=== PATIENT | female | born 1975 | race Caucasian/White ===

== ENCOUNTER 2019-04-16 00:09 | Emergency (ER) | payer MEDICAID, OTHER ==
[~2019-04-16] VITALS: Ht 165.1 cm; Wt 62.5 kg
--- NOTE | 2019-04-16 00:28 | ED Trauma-Multisystem ---
General Chief Complaint: Trauma-Non Activation Stated Complaint: FALL Source of Information: Patient Exam Limitations: No Limitations History of Present Illness Date Seen by Provider: Apr 16, 2019 Time Seen by Provider: 00:23 Initial Comments States she fell backward off a ladder at home tonight injuring her neck and low back. Denies hitting her head or any LOC. C/o pain in her neck with shooting pain from her neck into her low back. Denies weakness or numbness. Hx of neck surgery and scoliosis w chronic back pain. Occurred: Just Prior to Arrival Allergies and Home Medications Allergies Coded Allergies: baclofen (Verified Allergy, Unknown, 04/16/19) fluoxetine (Verified Allergy, Unknown, 04/16/19) Home Medications Cyclobenzaprine HCl 10 Mg Tablet, 10 MG PO Q8H PRN for SPASMS Prescribed by: WYATT JACOBS on 04/16/1930 Ibuprofen 800 Mg Tablet, 800 MG PO Q8H PRN for PAIN Prescribed by: WYATT DOWNSSTTAD on 04/16/1930 Patient Home Medication List Home Medication List Reviewed: Yes Review of Systems Review of Systems Constitutional: no symptoms reported; No dizziness, No fever, No malaise, No w eakness Respiratory: No cough, No short of breath Cardiovascular: Denies Chest Pain, Denies Edema, Denies Palpitations, Denies Syncope Gastrointestinal: No abdominal pain, No nausea, No vomiting Musculoskeletal: see HPI, back pain; No joint pain, No muscle stiffness, No muscle cramps, No muscle weakness; neck pain Skin: No change in color, No lesions, No lumps, No pruritus, No rash Psychiatric/Neurological: Denies Headache, Denies Numbness, Denies Unable to Move Lower Ext, Denies Unable to Move Upper Ext Past Yrwufzb-Glwxbc-Cizyso Hx Past Med/Social Hx: Reviewed Nursing Past Med/Soc Hx Patient Social History Recent Foreign Travel: No Contact w/Someone Who Travel: No Past Medical History Orthopedic (cervical spine) Physical Exam Vital Signs Vital Signs - First Documented 04/16/19 04/16/19 00:17 01:45 Temp 36.4 Pulse 90 Resp 20 B/P (MAP) 100/76 (84) Pulse Ox 100 O2 Delivery Room Air Height, Weight, BMI Height: '" Weight: lbs. oz. kg; BMI Method: General Appearance: No Apparent Distress, WD/WN Head: No Evidence of Injury; No Yo's Sign, No Contusions, No Lacerations, No Raccoon Eyes, No Swelling, No Tenderness Neck: Supple, Limited Range of Motion (2 to pain), Tender Lateral, Tender Midline (non-focal) Back: Normal Inspection, No CVA Tenderness, Decreased Range of Motion, Vertebral Tenderness (all of L-spine, none of T-spine and all of C-spine) Extremity: Normal Capillary Refill, Normal Inspection, Normal Range of Motion, Non Tender Neurologic/Psychiatric: Alert, Oriented x3, No Motor/Sensory Deficits Skin: Normal Color; No Ecchymosis, No Erythema Progress/Results/Core Measures Results/Orders My Orders Orders - WYATT JACOBS DO Ct Cervical Spine Wo (04/16/19 00:22) Lumbar Spine 2 Or 3 View (04/16/19 00:22) Hydrocodone/Apap 5/325 Tablet (Lortab 5 (04/16/19 01:45) Vital Signs/I&O 04/16/19 04/16/19 00:17 01:45 Temp 36.4 36.3 Pulse 90 84 Resp 20 16 B/P (MAP) 100/76 (84) 115/74 Pulse Ox 100 O2 Delivery Room Air Room Air Departure Impression Primary Impression: Fall (on) (from) other stairs and steps, initial encounter Additional Impression: Chronic neck and back pain Disposition: 01 HOME, SELF-CARE Condition: Stable Departure-Patient Inst. Referrals: NO,LOCAL PHYSICIAN (PCP/Family) Primary Care Physician Patient Instructions: Preventing Falls in the Older Adult Add. Discharge Instructions: See Dr Hong next week regarding your neck and low back pain. All discharge instructions reviewed with patient and/or family. Voiced understanding. Scripts Ibuprofen (Ibuprofen) 800 Mg Tablet 800 MG PO Q8H PRN for PAIN, #30 TAB 0 Refills Prov: TIAVENSTINEWYATT L DO 04/16/19 Cyclobenzaprine HCl (Cyclobenzaprine HCl) 10 Mg Tablet 10 MG PO Q8H PRN for SPASMS, #15 TAB 0 Refills Prov: ROVENSTINE,WYATT L DO 04/16/19 ROVENSTINEWYATT L DO Apr 16, 2019 00:27
[2019-04-16] MEDS ORDERED: IBUP-1780 PO (00:31)
[2019-04-16] MEDS ORDERED: CYCL10TA9 PO (00:31)
--- NOTE | 2019-04-16 00:36 | NUR ---
PT. ARRIVED TO THE ER BY POV AND WAS MET WITH A WHEELCHAIR. UPON ARRIVAL TO ER1 THE PT STATED SHE WAS UNABLE TO MOVE HER LEGS. THIS RN NOTED THAT WHEN THE PT WAS TAKEN TO THE CT FOR TESTING SHE STOOD UP AND THEN SIT ON THE CART WITHOUT ASSISTANCE.
[2019-04-16 01:45] VITALS: BP 115/74
[2019-04-16] MEDS ORDERED: HYDROcodone/APAP 5 MG/325 MG (LORTAB) TAB PO ONE (01:45)
--- NOTE | 2019-04-16 07:05 | Diagnostic Imaging Report ---
PROCEDURE: CT cervical spine without contrast. TECHNIQUE: Multiple contiguous axial images were obtained through the cervical spine without the use of intravenous contrast. Sagittal and coronal reformations were then performed. Auto Exposure Controls were utilized during the CT exam to meet ALARA standards for radiation dose reduction. INDICATION: Back pain after fall FINDINGS: There are posterior changes and anterior cervical fusion from C3 through C5 with plate and screws. The vertebral body heights are well-maintained. No fracture or traumatic subluxation. Odontoid is intact lateral masses well aligned. Prevertebral soft tissues are within normal limits. There are mild degenerative changes. Lung apices are clear. IMPRESSION: Mild cervical spondylosis with previous ACDF from C3 through C5 No acute fracture or traumatic subluxation. Dictated by: Dictated on workstation # [id number]
--- NOTE | 2019-04-16 07:18 | Diagnostic Imaging Report ---
INDICATION: Fall, pain COMPARISON: None available TECHNIQUE: 3 radiographs of the lumbar spine dated 04/16/2019 FINDINGS: 5 lumbar type vertebral bodies are present. Alignment of the lumbar spine is well maintained. Vertebral body heights are well-maintained. Minimal disc space height loss at L5/S1. Surgical clips in the right upper quadrant abdomen. No acute fracture or dislocation. No destructive osseous process. IMPRESSION: No acute osseous abnormalities with mild degenerative changes. Dictated by: Dictated on workstation # [id number]
--- OUTSIDE RECORDS SUMMARY | 2019-04-19 20:52 | XMS REPORT | Continuity of Care Document ---
Author Organization Unknown Address Unknown Phone Unavailable Allergies Active Description Code Type Severity Reaction Onset Reported/Identified Relationship to Patient Clinical Status Yes baclofen [id number] Drug Allergy Unknown N/A 04/16/2019 Yes fluoxetine [id number] Drug Allerg y Unknown N/A 04/16/2019 Medications There is no data. Problems There is no data. Procedures There is no data. Results There is no data. Encounters ACCT No. Visit Date/Time Discharge Status Pt. Type Provider Facility Loc./Unit Complaint [id number] 04/16/2019 00:13:00 020 01:45:00 DIS Emergency WYATT JACOBS DO [facility] ER FS FALL
== END 2019-04-16 01:45 | disposition home or self-care (01) ==
LOC: ER FS 00:13
DX: M54.2 Cervicalgia (principal); M54.5 Low back pain; Z88.8 Allergy status to other drugs, medicaments and biological substances; W10.8XXA Fall (on) (from) other stairs and steps, initial encounter; Y92.009 Unspecified place in unspecified non-institutional (private) residence as the place of occurrence of the external cause
CPT/HCPCS: 72100; 72125

== ENCOUNTER 2020-12-06 13:21 | Emergency (ER) | payer MEDICAID ==
[~2020-12-06 13:21] MED LIST: CYCL10TA9 PO; IBUP-1780 PO
--- NOTE | 2020-12-06 14:01 | Diagnostic Imaging Report ---
Indication: Knee pain COMPARISON: None available TECHNIQUE: 3 radiographs the right knee dated 12/06/2020 FINDINGS: Curvilinear calcifications are identified adjacent to the expected location of the origin of the medial collateral ligament. No acute fracture or dislocation. No destructive osseous process. Minimal medial joint space narrowing. Lateral compartment is well maintained. No significant osteophytosis. No significant knee joint effusion. No suspicious radiopaque foreign body. IMPRESSION: Calcifications medial to the medial femoral condyle. This is felt related to prior injury to the medial collateral ligament, Annie-Stieda lesion. This is felt to be subacute to chronic in nature. Dictated by: Dictated on workstation # [id number]
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
[2020-12-06 14:36] VITALS: BP 135/107
== END 2020-12-06 14:37 | disposition home or self-care (01) ==
LOC: EDUNIT# 13:21 → ER FS 13:23
DX: S89.91XA Unspecified injury of right lower leg, initial encounter (principal); F17.210 Nicotine dependence, cigarettes, uncomplicated; Y04.8XXA Assault by other bodily force, initial encounter
CPT/HCPCS: 73562